=== PATIENT | female | born 1980 | race American Indian/Alaskan Native ===

== ENCOUNTER 2017-01-28 01:49 | Emergency (ER) | payer MEDICAID ==
[2017-01-28 00:25] LABS: Bilirubin,Urine NEG (Negative); Blood,Urine NEG (Negative); Ketones,Urine TR mg/dL (Negative); Leukocyte Esterase,Urine NEG (Negative); Mucus,Urine 3+ /HPF; Nitrite,Urine NEG (Negative); Protein,Urine <15 mg/dL mg/dL (Negative)
[~2017-01-28 01:49] MED LIST: LACTATED RINGERS 500 ML IV ONE
[2017-01-28 03:34] LABS: Anion Gap 18 mmol/L; Blood Urea Nitrogen 5 mg/dL (7-17); Carbon Dioxide 20 mmol/L (22-30); Chloride 98.6 mmol/L (98-107); Glucose 86 mg/dL (65-100); Potassium 3.3 mmol/L (3.6-5.0); Sodium 133 mmol/L (137-145)
[2017-01-28 03:50] LABS: Basophils % (Auto) 0.2 % (0.0-1.8); Eosinophils % (Auto) 1.3 % (0.0-4.3); Hematocrit 33.8 % (30.3-42.9); Mean Corpuscular HGB Conc 32 % (30-34); Mean Corpuscular Hemoglobin 27 pg (28-32); Mean Corpuscular Volume 82 fl (79-97); Platelet Count 270 K/mm3 (140-440); Red Blood Count 4.14 M/mm3 (3.65-5.03); Red Cell Distribution Width 15.8 % (13.2-15.2); White Blood Count 13.1 K/mm3 (4.5-11.0)
[2017-01-28 09:12] LABS: Basophils % (Auto) 0.2 % (0.0-1.8); Eosinophils % (Auto) 1.2 % (0.0-4.3); Hematocrit 31.4 % (30.3-42.9); Hemoglobin 10.1 gm/dl (10.1-14.3); Mean Corpuscular HGB Conc 32 % (30-34); Mean Corpuscular Hemoglobin 27 pg (28-32); Mean Corpuscular Volume 83 fl (79-97); Platelet Count 244 K/mm3 (140-440); Red Blood Count 3.77 M/mm3 (3.65-5.03); Red Cell Distribution Width 15.8 % (13.2-15.2); White Blood Count 11.1 K/mm3 (4.5-11.0)
[2017-01-28 09:24] LABS: Alanine Aminotransferase 8 units/L (7-56); Albumin 3.1 g/dL (3.9-5); Albumin/Globulin Ratio 0.9 %; Alkaline Phosphatase 71 units/L (35-129); Anion Gap 17 mmol/L; Blood Urea Nitrogen 6 mg/dL (7-17); Calcium 8.6 mg/dL (8.4-10.2); Carbon Dioxide 22 mmol/L (22-30); Chloride 101.8 mmol/L (98-107); Glucose 90 mg/dL (65-100); Potassium 3.9 mmol/L (3.6-5.0); Sodium 137 mmol/L (137-145); Total Protein 6.7 g/dL (6.3-8.2)
[2017-01-28 09:30] LABS: INR 1.01 (0.87-1.13)
[2017-01-28 09:31] LABS: Partial Thromboplastin Time 28.6 Sec. (24.2-36.6)
--- NOTE | 2017-01-28 10:07 | Ultrasound Report ---
OB ULTRASOUND History: well being, no care, fall Technique: Transabdominal ultrasound with Doppler interrogation. Gestation: Single Position: Cephalic Amniotic Fluid: Normal Placenta: Anterior Placental Grade: 0 No evidence for abruption. Heart Rate: 154 BPM Cervical length: 3.5 cm (Normal > 3 cm) BPD: 4.3 cm = 19 w 0 d HC: 16.7 cm = 18 w 4 d AC: 13.0 cm = 18 w 4 d FL: 3.1 cm = 19 w 30 d HC/AC Ratio: 1.21 Cephalic Index: 78.6 Estimated Weight: 264 grams LMP: 09/24/16 Clinical age = 18 w 0 d EDC: 07/02/17 US Gest. Age = 18 w 6 d EDC: 06/25/17
--- NOTE | 2017-01-28 10:31 | Emergency Department Report ---
ED General Adult HPI - General Chief complaint: Fall Stated complaint: FALL/KNEE/ABD/BACK PAIN/CONSTIPATION Time Seen by Provider: 01/28/17 10:22 Source: patient Mode of arrival: Ambulatory Limitations: No Limitations - History of Present Illness Initial comments: This patient presented yesterday with a chief complaint of left knee pain. She states that she had a simple slip and fall 1 week ago. She's been able to weight-bear without difficulty. The knee is not swollen although it is bruised. She states that it hurts when her child bumps into it as she continuously tends to do. There's been no fever or chills. The patient claimed that she was 22 weeks . She was triaged to L&D for evaluation. She states that she was cleared of any OB problems. She complained of some vague back and abdominal pain. She did have a ultrasound which demonstrated a viable of 18 weeks with no specific issue. She was released from L&D and sent back to the emergency department for evaluation of her knee injury. The patient gives a strange a variable history of having a colon resection and being previously on Coumadin. According to the nurse she initially stated that she was on Coumadin. However her pharmacy was called and she has not been on Coumadin for about a year. In any case he is not anticoagulated and apparently the information that she gave was fictitious according to the nurse. She provided the nurse the pharmacy where she was supposedly taking her prescriptions for current Coumadin administration. In addition she has not sought out OB care during this whatsoever. -: week(s) Location: left (knee), lower extremity Radiation: back (chronic), abdomen (chronic) Severity scale (0 -10): 7 Consistency: intermittent Improves with: none Worsens with: none Associated Symptoms: other (stated some constipation) Treatments Prior to Arrival: none - Related Data Previous Rx's Medication Instructions Recorded Last Taken Type HYDROcodone/APAP 5-325 [[place] 1 each PO Q6HR PRN #5 tablet 01/28/17 Unknown Rx 5/325] Allergies Allergy/AdvReac Type Severity Reaction Status Date / Time No Known Allergies Allergy Verified 12/04/15 19:05 ED Review of Systems ROS: Stated complaint: FALL/KNEE/ABD/BACK PAIN/CONSTIPATION Other details as noted in HPI Constitutional: denies: chills, fever Eyes: denies: eye pain, eye discharge, vision change ENT: denies: ear pain, throat pain Respiratory: denies: cough, shortness of breath, wheezing Cardiovascular: denies: chest pain, palpitations Endocrine: no symptoms reported Gastrointestinal: abdominal pain, constipation. denies: nausea, diarrhea Genitourinary: denies: urgency, dysuria, discharge Musculoskeletal: as per HPI (knee pain), back pain. denies: joint swelling, arthralgia Skin: denies: rash, lesions Neurological: denies: headache, weakness, paresthesias Psychiatric: denies: anxiety, depression Hematological/Lymphatic: denies: easy bleeding, easy bruising ED Past Medical Hx - Past Medical History Previous Medical History?: Yes Hx Hypertension: Yes (CURRENTLY TAKES MEDICATION; PT DOES NOT KNOW NAME) Hx Congestive Heart Failure: No Hx Diabetes: No Hx Deep Vein Thrombosis: (2010) Hx Pulmonary Embolism: Yes Hx Renal Disease: No Hx Sickle Cell Disease: No Hx Seizures: No Hx Asthma: No Hx COPD: No Hx HIV: No Additional medical history: ISCHEMIC BOWEL DISEASE - Surgical History Past Surgical History?: Yes Additional Surgical History: c sectionx1 - Social History Smoking Status: Never Smoker Substance Use Type: None - Medications Home Medications: Home Medications Medication Instructions Recorded Confirmed Last Taken Type HYDROcodone/APAP 5-325 [[place] 1 each PO Q6HR PRN #5 tablet 01/28/17 Unknown Rx 5/325] ED Physical Exam - General Limitations: No Limitations General appearance: alert, in no apparent distress - Head Head exam: Present: atraumatic, normocephalic - Eye Eye exam: Present: normal appearance, PERRL, EOMI. Absent: scleral icterus - ENT ENT exam: Present: mucous membranes moist - Neck Neck exam: Present: normal inspection - Respiratory Respiratory exam: Present: normal lung sounds bilaterally. Absent: respiratory distress - Cardiovascular Cardiovascular Exam: Present: regular rate, normal rhythm. Absent: systolic murmur, diastolic murmur, rubs, gallop - GI/Abdominal GI/Abdominal exam: Present: soft, normal bowel sounds. Absent: distended, tenderness, guarding, rebound, rigid - Extremities Exam Extremities exam: Present: other (there is full range of motion of the knee. The knee is completely stable to all maneuvers. There is no effusion. There is no tenderness on range of motion. In the prepatellar area there is an ecchymosis which is evolving. There is no significant soft tissue swelling. There is no patellar deformity.) - Back Exam Back exam: Present: normal inspection - Neurological Exam Neurological exam: Present: alert, oriented X3, CN II-XII intact. Absent: motor sensory deficit - Psychiatric Psychiatric exam: Present: normal mood, flat affect - Skin Skin exam: Present: warm, dry, intact, normal color. Absent: rash ED Course Vital Signs 01/27/17 01/27/17 01/27/17 23:28 23:33 23:38 Temperature Pulse Rate 104 H 101 H 95 H Respiratory Rate Blood Pressure 93/60 O2 Sat by Pulse 99 99 99 Oximetry 01/27/17 01/27/17 01/27/17 23:43 23:48 23:53 Temperature Pulse Rate 98 H 92 H 94 H Respiratory Rate Blood Pressure O2 Sat by Pulse 99 99 98 Oximetry 01/27/17 01/28/17 01/28/17 23:58 00:03 00:08 Temperature Pulse Rate 93 H 88 91 H Respiratory Rate Blood Pressure O2 Sat by Pulse 99 99 99 Oximetry 01/28/17 01/28/17 01/28/17 00:13 00:18 00:23 Temperature Pulse Rate 87 85 93 H Respiratory Rate Blood Pressure O2 Sat by Pulse 98 98 100 Oximetry 01/28/17 01/28/17 01/28/17 02:39 05:51 08:27 Temperature 98.1 F 97.1 F L Pulse Rate 90 86 Respiratory 16 18 Rate Blood Pressure 144/98 139/84 O2 Sat by Pulse 100 99 98 Oximetry 01/28/17 01/28/17 01/28/17 08:29 08:31 08:33 Temperature Pulse Rate 82 83 Respiratory 14 21 Rate Blood Pressure O2 Sat by Pulse 99 100 100 Oximetry 01/28/17 01/28/17 01/28/17 08:35 08:37 08:39 Temperature Pulse Rate 82 90 82 Respiratory 22 23 21 Rate Blood Pressure O2 Sat by Pulse 100 99 96 Oximetry 01/28/17 01/28/17 01/28/17 08:41 08:43 08:45 Temperature Pulse Rate 85 76 81 Respiratory 22 22 22 Rate Blood Pressure O2 Sat by Pulse 97 99 99 Oximetry 06/24/17 06/24/17 06/24/17 08:47 08:49 08:51 Temperature Pulse Rate 81 85 83 Respiratory 22 20 22 Rate Blood Pressure O2 Sat by Pulse 98 100 100 Oximetry 01/28/17 01/28/17 01/28/17 08:53 08:55 08:57 Temperature Pulse Rate 82 77 79 Respiratory 21 20 19 Rate Blood Pressure O2 Sat by Pulse 100 100 100 Oximetry 01/28/17 01/28/17 01/28/17 08:59 09:01 09:03 Temperature Pulse Rate 79 77 77 Respiratory 21 21 21 Rate Blood Pressure O2 Sat by Pulse 100 100 100 Oximetry 01/28/17 01/28/17 01/28/17 09:05 09:07 09:08 Temperature Pulse Rate 77 75 83 Respiratory 20 23 19 Rate Blood Pressure 113/63 O2 Sat by Pulse 100 100 100 Oximetry 01/28/17 01/28/17 01/28/17 09:09 09:11 09:13 Temperature Pulse Rate 81 84 81 Respiratory 17 17 19 Rate Blood Pressure 113/63 113/63 113/63 O2 Sat by Pulse 100 99 98 Oximetry 01/28/17 01/28/17 01/28/17 09:15 09:17 09:19 Temperature Pulse Rate 81 83 83 Respiratory 22 22 25 H Rate Blood Pressure 113/63 113/63 113/63 O2 Sat by Pulse 99 100 98 Oximetry 01/28/17 01/28/17 01/28/17 09:21 09:23 09:25 Temperature Pulse Rate 86 80 85 Respiratory 17 21 19 Rate Blood Pressure 113/63 113/63 113/63 O2 Sat by Pulse 99 99 Oximetry 01/28/17 01/28/17 01/28/17 09:27 09:29 09:31 Temperature Pulse Rate 82 86 85 Respiratory 20 25 H 22 Rate Blood Pressure 113/63 113/63 113/63 O2 Sat by Pulse 100 98 Oximetry 01/28/17 01/28/17 01/28/17 09:33 09:35 09:37 Temperature Pulse Rate 88 83 81 Respiratory 27 H 26 H 22 Rate Blood Pressure 113/63 113/63 113/63 O2 Sat by Pulse 97 Oximetry 01/28/17 01/28/17 01/28/17 09:38 09:39 09:41 Temperature Pulse Rate 82 91 H 81 Respiratory 18 16 21 Rate Blood Pressure 109/66 109/66 109/66 O2 Sat by Pulse Oximetry 01/28/17 01/28/17 01/28/17 09:43 09:45 09:47 Temperature Pulse Rate 83 79 78 Respiratory 21 18 22 Rate Blood Pressure 109/66 109/66 109/66 O2 Sat by Pulse Oximetry 01/28/17 01/28/17 01/28/17 09:49 09:51 09:53 Temperature Pulse Rate 75 78 80 Respiratory 22 21 20 Rate Blood Pressure 109/66 109/66 109/66 O2 Sat by Pulse Oximetry 01/28/17 01/28/17 01/28/17 09:55 09:57 09:59 Temperature Pulse Rate 86 81 78 Respiratory 22 23 21 Rate Blood Pressure 109/66 109/66 109/66 O2 Sat by Pulse 98 Oximetry 01/28/17 01/28/17 01/28/17 10:00 10:01 10:03 Temperature Pulse Rate 79 81 78 Respiratory 22 22 21 Rate Blood Pressure 107/43 107/43 107/43 O2 Sat by Pulse Oximetry 01/28/17 01/28/17 01/28/17 10:05 10:07 10:09 Temperature Pulse Rate 78 78 78 Respiratory 22 23 21 Rate Blood Pressure 107/43 107/43 107/43 O2 Sat by Pulse 100 Oximetry 01/28/17 01/28/17 01/28/17 10:11 10:12 10:13 Temperature Pulse Rate 79 78 99 H Respiratory 23 23 23 Rate Blood Pressure 107/43 107/43 O2 Sat by Pulse 87 99 88 Oximetry 01/28/17 01/28/17 01/28/17 10:14 10:15 10:16 Temperature Pulse Rate 88 92 H 84 Respiratory 26 H 14 12 Rate Blood Pressure 107/43 107/43 107/43 O2 Sat by Pulse 96 100 Oximetry 01/28/17 01/28/17 01/28/17 10:17 10:19 10:21 Temperature Pulse Rate 82 82 83 Respiratory 19 21 24 Rate Blood Pressure 107/43 107/43 107/43 O2 Sat by Pulse 99 100 99 Oximetry 01/28/17 01/28/17 01/28/17 10:23 10:25 10:27 Temperature Pulse Rate 80 84 91 H Respiratory 22 21 29 H Rate Blood Pressure 107/43 107/43 107/43 O2 Sat by Pulse 99 Oximetry 01/28/17 01/28/17 01/28/17 10:29 10:31 10:33 Temperature Pulse Rate 88 88 82 Respiratory 25 H 24 22 Rate Blood Pressure 107/43 108/52 108/52 O2 Sat by Pulse 99 98 97 Oximetry 01/28/17 01/28/17 01/28/17 10:35 10:37 10:39 Temperature Pulse Rate 83 87 83 Respiratory 21 21 17 Rate Blood Pressure 108/52 108/52 108/52 O2 Sat by Pulse 97 99 Oximetry 01/28/17 10:41 Temperature Pulse Rate 81 Respiratory 19 Rate Blood Pressure 108/52 O2 Sat by Pulse 98 Oximetry - Reevaluation(s) Reevaluation #1: Patient was found to be mildly hyponatremic. Therefore she was given IV fluid. She had no surgical emergency medical condition requiring hospitalization or further care beyond this. She's been cleared by OB. Obviously she needs close follow-up for her . I would recommend Tylenol for her knee pain but I will give her a few Vicodin if it is really required. I have discussed the lack of indication of an x-ray with the patient. She agrees that she knows that there is no fracture. Therefore an x-ray will not be obtained. 01/28/17 11:13 ED Medical Decision Making - Lab Data Result diagrams: 01/28/17 08:54 01/28/17 08:54 Laboratory Results - last 24 hr 01/27/17 01/28/17 01/28/17 Unknown 02:58 02:58 WBC 13.1 H RBC 4.14 Hgb 11.0 Hct 33.8 MCV 82 MCH 27 L MCHC 32 RDW 15.8 H Plt Count 270 Lymph % (Auto) 12.5 L [place] % (Auto) 6.2 Eos % (Auto) 1.3 Baso % (Auto) 0.2 Lymph # 1.6 [place] # 0.8 Eos # 0.2 Baso # 0.0 Seg Neutrophils % 79.8 H Seg Neutrophils # 10.5 H PT INR APTT Sodium 133 L Potassium 3.3 L Chloride 98.6 Carbon Dioxide 20 L Anion Gap 18 BUN 5 L Creatinine 0.4 L Estimated GFR > 60 BUN/Creatinine Ratio 12.50 Glucose 86 Calcium 9.0 Total Bilirubin AST ALT Alkaline Phosphatase Total Protein Albumin Albumin/Globulin Ratio Urine Color Yellow Urine Turbidity Clear Urine pH 5.0 Ur Specific [place] 1.026 Urine Protein <15 mg/dl Urine Glucose (UA) Neg Urine Ketones Tr Urine Blood Neg Urine Nitrite Neg Urine Bilirubin Neg Urine Urobilinogen 4.0 Ur Leukocyte Esterase Neg Urine WBC (Auto) 3.0 Urine RBC (Auto) 1.0 U Epithel Cells (Auto) 5.0 Urine Mucus 3+ 01/28/17 01/28/17 01/28/17 08:54 08:54 08:54 WBC 11.1 H RBC 3.77 Hgb 10.1 Hct 31.4 MCV 83 MCH 27 L MCHC 32 RDW 15.8 H Plt Count 244 Lymph % (Auto) 13.1 L [place] % (Auto) 7.7 H Eos % (Auto) 1.2 Baso % (Auto) 0.2 Lymph # 1.5 [place] # 0.9 H Eos # 0.1 Baso # 0.0 Seg Neutrophils % 77.8 H Seg Neutrophils # 8.7 H PT 13.8 INR 1.01 APTT 28.6 Sodium 137 Potassium 3.9 Chloride 101.8 Carbon Dioxide 22 Anion Gap 17 BUN 6 L Creatinine 0.4 L Estimated GFR > 60 BUN/Creatinine Ratio 15.00 Glucose 90 Calcium 8.6 Total Bilirubin 0.20 AST 11 ALT 8 Alkaline Phosphatase 71 Total Protein 6.7 Albumin 3.1 L Albumin/Globulin Ratio 0.9 Urine Color Urine Turbidity Urine pH Ur Specific [place] Urine Protein Urine Glucose (UA) Urine Ketones Urine Blood Urine Nitrite Urine Bilirubin Urine Urobilinogen Ur Leukocyte Esterase Urine WBC (Auto) Urine RBC (Auto) U Epithel Cells (Auto) Urine Mucus - Radiology Data Radiology results: report reviewed Critical care attestation.: If time is entered above; I have spent that time in minutes in the direct care of this critically ill patient, excluding procedure time. ED Disposition Clinical Impression: Hyponatremia, Intrauterine Contusion of left knee Qualifiers: Encounter type: initial encounter Qualified Code(s): S80.02XA - Contusion of left knee, initial encounter Disposition: DC-01 TO HOME OR SELFCARE Is pt being admited?: No Does the pt Need Aspirin: No Condition: Stable Instructions: Labor/ Labor Instructions, Labor (DC) Additional Instructions: SCHEDULE NEW PATIENT APPOINTMENT WITH OB. LABOR PRECAUTIONS GIVEN IN DISCHARGE INSTRUCTIONS. Prescriptions: HYDROcodone/APAP 5-325 [[place] 5/325] 1 each PO Q6HR PRN #5 tablet PRN Reason: Pain Referrals: PRIMARY CARE, [Primary Care Provider] - 7 Days Time of Disposition: 11:16
[2017-01-28] MEDS ORDERED: NACL 0.9% 1000 ML 1,000 ML ONE (10:51)
[2017-01-28] MEDS ORDERED: LACTATED RINGERS 1,000 ML ONE (10:57)
[2017-01-28 11:54] VITALS: BP 112/60
== END 2017-01-28 11:53 | disposition home or self-care (01) ==
LOC: TRG 01:49 → ED 01:49
DX: O9A.212 Injury, poisoning and certain other consequences of external causes complicating pregnancy, second trimester (principal); S80.02XA Contusion of left knee, initial encounter; E87.1 Hypo-osmolality and hyponatremia; I10 Essential (primary) hypertension; Z3A.22 22 weeks gestation of pregnancy; Z86.711 Personal history of pulmonary embolism; W19.XXXA Unspecified fall, initial encounter; Y93.89 Activity, other specified; Y99.9 Unspecified external cause status; Y92.89 Other specified places as the place of occurrence of the external cause
CPT/HCPCS: 36415; 51701; 59025; 76805; 80048; 80053; 81001; 85025; 85610; 85730; 99284; J7030; J7120

== ENCOUNTER 2018-02-01 11:52 | Emergency (ER) | payer MEDICAID ==
[2018-02-01 12:07] VITALS: BP 127/83
== END 2018-02-01 14:35 | disposition left against medical advice (07) ==
LOC: ED 11:52
DX: K08.89 Other specified disorders of teeth and supporting structures (principal); Z53.21 Procedure and treatment not carried out due to patient leaving prior to being seen by health care provider